=== PATIENT | male | born 1960 | race Caucasian/White ===

== ENCOUNTER 2016-07-31 21:08 | Emergency (ER) | payer BC ==
[2016-08-02] MEDS ORDERED: LIPITOR TAB 1010 MG PO (12:22)
[2016-08-02] MEDS ORDERED: NORVASC 5 MG TAB5 MG PO (12:22)
[2016-08-02] MEDS ORDERED: NEXIUM PO (12:23)
[2016-08-02] MEDS ORDERED: ZYRTEC10 MG PO (12:24)
[2016-08-02] MEDS ORDERED: NASAL SPRAY (12:25)
[2016-08-02] MEDS ORDERED: MULTI-DAY VITA1 EACH PO (12:26)
[2016-08-02] MEDS ORDERED: PHENERGAN 12.12.5 M1 PO (19:27)
[2016-08-02] MEDS ORDERED: DOSS PO (19:28)
[2016-08-02] MEDS ORDERED: PERCOCET 5-3251 EACH PO (19:28)
== END 2016-07-31 22:48 | disposition home or self-care (01) ==
LOC: ER1 21:08
DX: S52.571A Other intraarticular fracture of lower end of right radius, initial encounter for closed fracture (principal); F17.210 Nicotine dependence, cigarettes, uncomplicated; W18.39XA Other fall on same level, initial encounter; Y93.89 Activity, other specified; Y92.89 Other specified places as the place of occurrence of the external cause
CPT/HCPCS: 29125; 73080; 73110; 73130; 99283

== ENCOUNTER → 2016-08-02 | Day surgery (SDC) | payer BC ==
[~2016-08-02] VITALS: Ht 190.5 cm; Wt 108.4 kg
[~2016-08-02] MED LIST: DOSS PO; LIPITOR TAB 1010 MG PO; MULTI-DAY VITA1 EACH PO; NASAL SPRAY; NEXIUM PO; NORVASC 5 MG TAB5 MG PO; PERCOCET 5-3251 EACH PO; PHENERGAN 12.12.5 M1 PO; ZYRTEC10 MG PO
[2016-08-02 12:07] LABS: BUN/CREATININE RATIO 11 (0-10)
== END | disposition home or self-care (01) ==
LOC: OR 11:13
PROVIDERS: Orthopaedic Surgery
PROC: 0PSH04Z Reposition Right Radius with Internal Fixation Device, Open Approach (ICD-10-PCS; principal; 2016-08-02 19:15)
DX: S52.571A Other intraarticular fracture of lower end of right radius, initial encounter for closed fracture (principal); I10 Essential (primary) hypertension; K21.9 Gastro-esophageal reflux disease without esophagitis; F17.210 Nicotine dependence, cigarettes, uncomplicated; Z88.8 Allergy status to other drugs, medicaments and biological substances; Z79.891 Long term (current) use of opiate analgesic; Z79.899 Other long term (current) drug therapy; W19.XXXA Unspecified fall, initial encounter
CPT/HCPCS: 36415; 71010; 73100; 73110; 76000; 80048; 93005; C1713; C1776; J0690; J2250; J3010; J7120